=== PATIENT | female | born 1965 | race African-American/Black ===

== ENCOUNTER → 2016-09-15 | Outpatient (CLI) | payer OTHER ==
[~2016-09-15] MED LIST: ERGO1CAP10 PO; HYDR12.57 PO; INSULIN HUMAN REGULAR 1,000 UNITS/10 ML VIAL SQ PRN; IOHEXOL 350 MG/ML 100 ML BTL (for Cath Lab) OTHER ONE; LACTATED RINGER'S 1000 ML IV SCH; LOSA50TA PO; METOPROLOL TARTRATE 25 MG TAB PO PRN; MULT1TAB84 PO; OXYC1TAB36 PO; PROPOFOL 200 MG/20 ML AMP IV ONE; SODIUM CHLORID 0.9% 500 ML IV SCH; VERA1TAB17 PO
[2016-09-15 09:45] VITALS: BP 144/88; PULSE 66; RESP 20; TEMP 98.1; O2SAT 100
[2016-09-15 11:39] VITALS: TEMP 97.7
--- NOTE | 2016-09-15 11:39 | PD.PROCEDR ---
GI Procedure REFERRING PHYSICIAN Dr. Park PROCEDURE PERFORMED Colonoscopy with snare polypectomy INDICATION FOR PROCEDURE Colon polyp PROCEDURE: The procedure, risks and benefits were discussed with Ms. Pearson and informed consent was obtained. Anesthesia sedated her with Diprivan. She was placed in the left lateral decubitus position. Colonoscopy: The Pentax videoscope was introduced through the rectum and advanced to cecum where the ileocecal valve and appendiceal orifice were identified. Retroflexion was performed in the rectum. Colonic prep was good FINDINGS: Colonic withdrawal time greater than 6 minutes as the scope was slowly withdrawn colonic mucosa was carefully inspected the patient was again noted to have a large sessile cecal polyp chunks of the polyp were removed but the polyp is flat and over the cecal ridge and I was not able to get a good visualization and I doubt that resection could be complete otherwise colonic mucosa was healthy ESTIMATED BLOOD LOSS: None SPECIMENS REMOVED: Cecal polyp COMPLICATIONS: None IMPRESSION: Large sessile cecal polyp PLAN: Await pathology Recommend referral to general surgery to Omid Morin MD Sep 15, 2016 11:38
[2016-09-15 11:49] VITALS: BP 129/82; PULSE 67; RESP 16; O2SAT 98
--- NOTE | 2016-09-15 23:36 | EKG ---
Date Performed: 09/15/2016 Time Performed: 08:58:01 PTAGE: 50 years EKG: SINUS BRADYCARDIA BORDERLINE ECG PREVIOUS TRACING : 01/06/1994 06.58 Compared to prior tracing no significant change DOCTOR: Camden Rodriguez Interpretating Date/Time 09/15/2016 23:34:51
== END ==
LOC: HEND 08:16
PROVIDERS: ATTEND Internal Medicine Gastroenterology
DX: Z12.11 Encounter for screening for malignant neoplasm of colon (principal); D12.0 Benign neoplasm of cecum; R94.31 Abnormal electrocardiogram [ECG] [EKG]
CPT/HCPCS: 00810; 45385; 88305; 93005; J7120; Q9967

== ENCOUNTER 2016-10-11 14:56 | Inpatient (IN) | payer OTHER ==
[~2016-10-11] VITALS: Ht 154.9 cm; Wt 76.1 kg
[~2016-10-11 14:56] MED LIST changes: -INSULIN HUMAN REGULAR 1,000 UNITS/10 ML VIAL SQ PRN; -IOHEXOL 350 MG/ML 100 ML BTL (for Cath Lab) OTHER ONE; -LACTATED RINGER'S 1000 ML IV SCH; -METOPROLOL TARTRATE 25 MG TAB PO PRN; -OXYC1TAB36 PO; -PROPOFOL 200 MG/20 ML AMP IV ONE; -SODIUM CHLORID 0.9% 500 ML IV SCH
[2016-10-19] MEDS ORDERED: SODIUM CHLORID 0.9% 500 ML IV PRN (11:30)
[2016-10-19] MEDS ORDERED: CHLORHEXIDINE GLUCONATE 2 % 1 PACK (2 CLOTHS) TOPICAL PRN (11:30)
[2016-10-19] MEDS ORDERED: METOPROLOL TARTRATE 25 MG TAB PO PRN (11:30)
[2016-10-19] MEDS ORDERED: LACTATED RINGER'S 1000 ML IV PRN (11:30)
[2016-10-19] MEDS ORDERED: INSULIN HUMAN REGULAR 1,000 UNITS/10 ML VIAL SQ PRN (11:30)
[2016-10-19] MEDS ORDERED: POVIDONE IODINE 5% (ANTISEPSIS KIT) 4 APPLICATIONS EACH NARE PRN (11:30)
[2016-10-19] MEDS ORDERED: ceFAZolin 2 GM PREMIX 50 ML IV SCH (11:45)
[2016-10-19] MEDS ORDERED: ACETAMINOPHEN 1000 MG/100 ML VIAL IV SCH (11:45)
[2016-10-19] MEDS ORDERED: ALVIMOPAN 12 MG CAPSULE - On Call PO SCH (11:45)
[2016-10-19] MEDS ORDERED: metroNIDAZOLE 500 MG INJ 100 ML IV SCH (11:45)
[2016-10-19] MEDS ORDERED: NORMOSOL R INJ 1,000 ML IV ONE (12:00)
[2016-10-19] MEDS ORDERED: ePHEDrine/NS 25 MG/5 ML SYR IV ONE (12:00)
[2016-10-19] MEDS ORDERED: NEOSTIGMINE 3 MG/3 ML SYR IV ONE (12:00)
[2016-10-19] MEDS ORDERED: PROPOFOL 200 MG/20 ML AMP IV ONE (12:00)
[2016-10-19] MEDS ORDERED: ONDANSETRON HCL 4 MG/2 ML VIAL IV PUSH ONE (12:00)
[2016-10-19 12:06] VITALS: BP 127/84; PULSE 72; RESP 16; TEMP 98.8; O2SAT 98
[2016-10-19] MEDS ORDERED: MIDAZOLAM HCL 2 MG/2 ML VIAL ONE ×2 (16:13→16:19)
[2016-10-19] MEDS ORDERED: ACETAMINOPHEN 1000 MG/100 ML VIAL IV ONE (16:13)
[2016-10-19] MEDS ORDERED: fentaNYL CITRATE 250 MCG/5 ML AMP ONE (16:13)
[2016-10-19] MEDS ORDERED: FAMOTIDINE 20 MG/2 ML VIAL ONE ×2 (16:14→16:19)
[2016-10-19] MEDS ORDERED: DEXAMETHASONE SOD PHOS 4 MG/ML VIAL ONE (16:19)
[2016-10-19] MEDS ORDERED: BUPIVACAINE/EPINEPHRINE 0.5% PF 30 ML VIAL ONE (16:36)
[2016-10-19] MEDS ORDERED: MORPHINE SULFATE 4 MG/ML INJ IV PRN (19:15)
[2016-10-19] MEDS ORDERED: SODIUM CHLORIDE 0.9% FLUSH 10 ML FLUSH IV FLUSH PRN (19:15)
[2016-10-19] MEDS ORDERED: Post-op Orders (for Pharmacy) MISC XX ONE (19:15)
[2016-10-19] MEDS ORDERED: diphenhydrAMINE HCL 50 MG/ML VIAL IV PRN (19:15)
[2016-10-19] MEDS ORDERED: NALOXONE HCL 0.4 MG/ML AMP IV PRN (19:15)
[2016-10-19] MEDS ORDERED: oxyCODONE/ACETAMINOPHEN 5 MG/325 MG TAB PO PRN (19:15)
[2016-10-19] MEDS ORDERED: ONDANSETRON HCL 4 MG/2 ML VIAL IV PRN (19:15)
[2016-10-19] MEDS ORDERED: MORPHINE SULFATE 4 MG/ML INJ ONE (19:21)
[2016-10-19] MEDS ORDERED: *morphine SULFATE 8 MG/ML PERIprocedure ONLY ONE ×2 (19:33→20:04)
[2016-10-19] MEDS ORDERED: DO NOT ADM ANY ANTICOAGULANT DRUGS PRN (19:45)
[2016-10-19] MEDS: SODIUM CHLOR 0.9% 1000 ML INJ 1,000 ML IV SCH (20:00)
[2016-10-19] MEDS: PANTOPRAZOLE SOD 40 MG DELAYED RELEASE TAB PO SCH (20:56)
[2016-10-19] MEDS: SODIUM CHLORIDE 0.9% FLUSH 10 ML FLUSH IV FLUSH SCH (20:57)
[2016-10-19 21:00] VITALS: BP 133/81; PULSE 65; RESP 20; TEMP 97.8; O2SAT 98
[2016-10-19] MEDS: KETOROLAC TROMETHAMINE 30 MG/ML (IVP) VIAL IV PUSH SCH (23:54)
[2016-10-19] MEDS: metroNIDAZOLE 500 MG INJ 100 ML IV SCH (23:55)
[2016-10-20 04:00] VITALS: BP 130/74; PULSE 69; RESP 20; TEMP 96.9; O2SAT 93
[2016-10-20] MEDS: SODIUM CHLOR 0.9% 1000 ML INJ 1,000 ML IV SCH ×4 (04:16→20:38)
[2016-10-20 04:34] LABS: AUTOMATED NEUTROPHIL # 11.4 TH/MM3 (1.8-7.7); BASOPHIL % 0.2 % (0.0-2.0); HEMATOCRIT 33.7 % (35.0-46.0); HEMO FLAGS DIFF FINAL; LYMPH % 4.8 % (9.0-44.0); LYMPHOCYTE # 0.6 TH/MM3 (1.0-4.8); MEAN CELL VOLUME 92.8 FL (80.0-100.0); MEAN CORPUSCULAR HEMOGLOBIN 30.2 PG (27.0-34.0); MEAN CORPUSCULAR HGB CONC 32.6 % (32.0-36.0); MONO % 6.6 % (0.0-8.0); NEUT % 88.4 % (16.0-70.0); PLATELET COUNT 228 TH/MM3 (150-450); RED BLOOD COUNT 3.63 MIL/MM3 (4.00-5.30); RED CELL DISTRIBUTION WIDTH 13.6 % (11.6-17.2); WHITE BLOOD COUNT 12.9 TH/MM3 (4.0-11.0)
[2016-10-20 05:01] LABS: BICARBONATE 24.6 MEQ/L (21.0-32.0); POTASSIUM 3.7 MEQ/L (3.5-5.1)
[2016-10-20] MEDS: KETOROLAC TROMETHAMINE 30 MG/ML (IVP) VIAL IV PUSH SCH ×4 (05:48→23:31)
[2016-10-20 08:00] VITALS: BP 108/73; PULSE 86; RESP 17; TEMP 96.9; O2SAT 98
[2016-10-20] MEDS: SODIUM CHLORIDE 0.9% FLUSH 10 ML FLUSH IV FLUSH SCH ×2 (09:00→20:33)
--- NOTE | 2016-10-20 09:00 | HHI.PR ---
Subjective Subjective Notes Doing well. Abdomen sore but pain is tolerable. No nausea. Had some liquids last night. Objective Vitals/I&O Vital Signs Date Time Temp Pulse Resp B/P Pulse Ox O2 Delivery O2 Flow Rate FiO2 10/20/16 08:00 96.9 86 17 108/73 98 10/19/16 20:15 Nasal Cannula 2 Labs Laboratory Tests Test 10/19/16 10/20/16 12:00 03:45 Blood Type O POSITIVE Antibody Screen NEGATIVE White Blood Count 12.9 Red Blood Count 3.63 Hemoglobin 11.0 Hematocrit 33.7 Mean Corpuscular Volume 92.8 Mean Corpuscular Hemoglobin 30.2 Mean Corpuscular Hemoglobin 32.6 Concent Red Cell Distribution Width 13.6 Platelet Count 228 Mean Platelet Volume 8.2 Neutrophils (%) (Auto) 88.4 Lymphocytes (%) (Auto) 4.8 Monocytes (%) (Auto) 6.6 Eosinophils (%) (Auto) 0.0 Basophils (%) (Auto) 0.2 Neutrophils # (Auto) 11.4 Lymphocytes # (Auto) 0.6 Monocytes # (Auto) 0.9 Eosinophils # (Auto) 0.0 Basophils # (Auto) 0.0 CBC Comment DIFF FINAL Differential Comment Sodium Level 137 Potassium Level 3.7 Chloride Level 103 Carbon Dioxide Level 24.6 Anion Gap 9 Blood Urea Nitrogen 9 Creatinine 0.93 Estimat Glomerular Filtration 77 Rate Random Glucose 140 Calcium Level 7.9 Narrative Exam NAD nonlabored breathing Abd: soft, inc c/d/i with small amt saturation midline bandage Alfredo clear urine A/P Assessment and Plan 50 yo F POD 1 lap assisted right colectomy. Stable post op. Fulls. D/c alfredo. Home bp meds. Ambulate. DVT proph: SCDs. Lovenicholex. Jermaine,Jose MANZO Oct 20, 2016 09:00
[2016-10-20] MEDS: metroNIDAZOLE 500 MG INJ 100 ML IV SCH ×2 (09:02→17:03)
[2016-10-20] MEDS: LOSARTAN 50 MG TAB PO SCH (09:02)
[2016-10-20] MEDS: HYDROCHLOROTHIAZIDE 12.5 MG CAP PO SCH (09:02)
[2016-10-20] MEDS: VERAPAMIL HCL 240 MG SUSTAINED RELEASE TAB PO SCH (09:02)
[2016-10-20] MEDS: ALVIMOPAN 12 MG CAPSULE - Post-op dosing PO SCH ×2 (09:03→20:33)
[2016-10-20 12:00] VITALS: BP 108/64; PULSE 83; RESP 16; TEMP 97.8; O2SAT 96
[2016-10-20 16:00] VITALS: BP 100/61; PULSE 81; RESP 16; TEMP 97.9; O2SAT 94
[2016-10-20] MEDS: ENOXAPARIN SODIUM 40 MG/0.4 ML SYRINGE SQ SCH (17:03)
[2016-10-20] MEDS: oxyCODONE/ACETAMINOPHEN 10 MG/325 MG TAB PO PRN (17:10)
[2016-10-20 20:00] VITALS: BP 92/51; PULSE 61; RESP 20; TEMP 97.8; O2SAT 94
[2016-10-20] MEDS: PANTOPRAZOLE SOD 40 MG DELAYED RELEASE TAB PO SCH (20:37)
[2016-10-21 04:00] VITALS: BP 119/71; PULSE 67; RESP 21; TEMP 98.2; O2SAT 97
[2016-10-21] MEDS: KETOROLAC TROMETHAMINE 30 MG/ML (IVP) VIAL IV PUSH SCH ×4 (05:01→23:01)
[2016-10-21] MEDS: SODIUM CHLOR 0.9% 1000 ML INJ 1,000 ML IV SCH (05:04)
[2016-10-21] MEDS: oxyCODONE/ACETAMINOPHEN 10 MG/325 MG TAB PO PRN ×3 (06:00→17:57)
[2016-10-21 08:00] VITALS: BP 114/69; PULSE 94; RESP 18; TEMP 96.9; O2SAT 96
[2016-10-21] MEDS: ALVIMOPAN 12 MG CAPSULE - Post-op dosing PO SCH ×2 (08:47→19:54)
[2016-10-21] MEDS: HYDROCHLOROTHIAZIDE 12.5 MG CAP PO SCH (09:00)
[2016-10-21] MEDS: SODIUM CHLORIDE 0.9% FLUSH 10 ML FLUSH IV FLUSH SCH ×2 (09:00→19:55)
[2016-10-21] MEDS: LOSARTAN 50 MG TAB PO SCH (09:00)
--- NOTE | 2016-10-21 10:13 | HHI.PR ---
Subjective Subjective Notes Had some pain last night but better now. She is tolerating fulls without nausea. Had a couple of liquid bloody BMs. Objective Vitals/I&O Vital Signs Date Time Temp Pulse Resp B/P Pulse Ox O2 Delivery O2 Flow Rate FiO2 10/21/16 08:00 96.9 94 18 114/69 96 10/19/16 20:15 Nasal Cannula 2 Narrative Exam NAD nonlabored breathing Abd: soft, inc with some oozing and mild ecchymosis. Dressing changed. A/P Assessment and Plan 50 yo F POD 2 lap assisted right colectomy. Stable post op. Regular diet. D/c ivf. Home bp meds. Ambulate. DVT proph: SCDs. Lovenox. Plan for dc home tomorrow. Rx on chart. Jose Dean MD Oct 21, 2016 10:13
[2016-10-21] MEDS ORDERED: OXYC1TAB36 PO (10:15)
[2016-10-21] MEDS: VERAPAMIL HCL 240 MG SUSTAINED RELEASE TAB PO SCH (11:59)
[2016-10-21 12:00] VITALS: BP 118/70; PULSE 85; RESP 16; TEMP 97.2; O2SAT 97
[2016-10-21 16:00] VITALS: BP 107/61; PULSE 96; RESP 15; TEMP 97.1; O2SAT 95
[2016-10-21] MEDS: ENOXAPARIN SODIUM 40 MG/0.4 ML SYRINGE SQ SCH (17:57)
[2016-10-21] MEDS: PANTOPRAZOLE SOD 40 MG DELAYED RELEASE TAB PO SCH (19:54)
[2016-10-21 20:00] VITALS: BP 112/65; PULSE 85; RESP 20; TEMP 98.7; O2SAT 94
[2016-10-21 23:59] VITALS: BP 140/76; PULSE 86; RESP 20; TEMP 98.4; O2SAT 98
[2016-10-22] MEDS: oxyCODONE/ACETAMINOPHEN 10 MG/325 MG TAB PO PRN
[2016-10-22] MEDS: KETOROLAC TROMETHAMINE 30 MG/ML (IVP) VIAL IV PUSH SCH ×2 (05:38→11:32)
[2016-10-22 08:00] VITALS: BP 98/55; PULSE 91; RESP 16; TEMP 95.3; O2SAT 98
[2016-10-22] MEDS: SODIUM CHLORIDE 0.9% FLUSH 10 ML FLUSH IV FLUSH SCH (09:17)
[2016-10-22] MEDS: ALVIMOPAN 12 MG CAPSULE - Post-op dosing PO SCH (09:17)
[2016-10-22] MEDS: VERAPAMIL HCL 240 MG SUSTAINED RELEASE TAB PO SCH (09:19)
[2016-10-22] MEDS: HYDROCHLOROTHIAZIDE 12.5 MG CAP PO SCH (09:21)
[2016-10-22] MEDS: LOSARTAN 50 MG TAB PO SCH (09:21)
--- NOTE | 2016-10-22 10:37 | HHI.PR ---
Subjective Subjective Notes pt comfortable magda diet pos flatus Objective Vitals/I&O Vital Signs Date Time Temp Pulse Resp B/P Pulse Ox O2 Delivery O2 Flow Rate FiO2 10/22/16 08:00 95.3 91 16 98/55 98 10/19/16 20:15 Nasal Cannula 2 Abdomen: Post-op tenderness Extremities: Perfused Wound Wound : Wound Location: Abdomen Appearance: Clean & Dry A/P Assessment and Plan s/p lap assisted r colectomy doing well d/c home Zaire Gonzalez MD Oct 22, 2016 10:37
--- NOTE | 2016-10-22 12:47 | MP ---
cc: JOSIAH MEI MD DATE OF SURGERY: 10/19/2016 PREOPERATIVE DIAGNOSIS: Cecal polyp. POSTOPERATIVE DIAGNOSIS: Cecal polyp. OPERATION: Laparoscopic assisted ascending colectomy. SURGEON: Josiah Mei MD. INSTRUCTOR PHYSICAL: ROHINI Paulino. Anesthesia: General endotracheal anesthesia. ESTIMATED BLOOD LOSS: 20 cc. COMPLICATIONS: None apparent. SPECIMENS Right colon from terminal ileum and appendix with cecal polyp. OPERATIVE FINDINGS The patient underwent uncomplicated right colectomy. The specimen was opened on the back table and the patient had a fairly extensive polyp involving the entire ileocecal valve. PROCEDURE IN DETAIL The patient was taken to the operating room and placed in supine position. General endotracheal anesthesia was induced. The left arm was tucked. The abdomen was prepped and draped in usual sterile fashion. A surgical time-out was performed to verify correct patient, procedure and site. She was administered appropriate Preoperative antibiotics. In the left lower abdomen a 5-mm trocar was inserted at under direct laparoscopic visualization. The abdomen was insufflated to 15 mmHg with CO2 gas which the patient tolerated well. A 5-mm trocar was placed in the lower midline and one in the left upper abdomen and epigastrium. The patient was placed in Trendelenburg position and turned to the left. Attention was turned to the cecum. The cecum was elevated and the ileocolic pedicle in the colonic mesentery was isolated using harmonic scalpel. The left upper abdominal port was changed to a 12 mm port and the ileocolic pedicle was then divided with the vascular laparoscopic stapler. The lateral attachments of the appendix and terminal ileum were divided with harmonic scalpel and well as the entire white line of Toldt along the right colon. The avascular plane between the greater omentum and the transverse colon was then divided and then the proximal transverse colon. Hepatic flexure was taken down as well with harmonic scalpel. The harmonic scalpel was used to divide the mesentery from the site of the ileocolic division to the terminal ileum. The site was also chosen on the right colon where the mesentery was divided to that point. The terminal ileum and right colon were now well mobilized. The patient had a previous lower midline scar and this was opened along the length of approximately 6 cm a with a knife. The abdomen was allowed to desufflate. The dissection was carried out down through the incision with the electrocautery and the fascia opened. The cecum and specimen were brought up through this lower midline small laparotomy incision. The terminal ileum site where the mesentery was divided was then transected with the TREVON 75 mm blue load stapler. The right colon was then divided at the corresponding site of the divided mesentery with the blue load 75 mm TREVON stapler. The specimen was opened on the back table and there was fairly extensive sessile polyp including the entire ileocecal valve and portion around the ileocecal valve. Antiperistaltic [id number] functional end-to-end anastomosis was performed using the TREVON 75 mm blue load stapler and a TX 60 blue load. There was no tension on the anastomosis. No hematoma or bleeding from the staple line. There was some external bleeding which was stopped with interrupted [id number] 3-0 silk sutures. The ileocolic mesentery was then closed with the running 3-0 silk suture and the anastomosis replaced into the abdominal cavity. The lower midline incision was closed with a running #1 PDS suture. The abdomen was then reinsufflated and the mesentery was in correct position with no twisting. The abdomen was again allowed to desufflate and trocars were removed. The lower midline incision was copiously irrigated and skin closed with the skin stapler. The skin of the remaining trocar sites was closed with subcuticular 4-0 Monocryl as well as Dermabond. The patient tolerated procedure well was extubated and taken to PACU in stable condition. MD GET Acuna/trace /12:24 PM /12:30 PM KIRAN
--- NOTE | 2016-11-16 11:00 | MD ---
cc: JOSIAH MEI MD ADMISSION DATE: 10/19/2016 DISCHARGE DATE: 10/22/2016 ADMITTING DIAGNOSIS Cecal polyp. PROCEDURE Laparoscopic ascending colectomy. BRIEF HISTORY This is a 50-year-old female who on routine screening colonoscopy was found to have a cecal polyp enveloping the majority of the ileocecal valve and unable to be removed endoscopically. Therefore she was referred for colectomy and after evaluation and discussion with the patient this was planned. HOSPITAL COURSE She did well postoperatively, tolerated liquids and regular pain medication. Her pain was controlled with oral medications and she was ambulating safely. She was therefore discharged to home. DISCHARGE CONDITION Stable. DISCHARGE INSTRUCTIONS Activity: Avoid heavy lifting. Diet: Regular. Medications: Percocet. Discharge to home. Follow-up in 2 weeks. Josiah Mei MD JPD/BT /2:38 PM /10:46 AM
== END 2016-10-22 12:50 | disposition home or self-care (01) | DRG 331 ==
LOC: HSDI 10-19 11:09 → N07B 10-19 20:32
PROVIDERS: ADMIT Surgery; ATTEND Surgery
PROC: 0DTH0ZZ Resection of Cecum, Open Approach (ICD-10-PCS; 2016-10-19)
PROC: 0DJD4ZZ Inspection of Lower Intestinal Tract, Percutaneous Endoscopic Approach (ICD-10-PCS; 2016-10-19)
PROC: 0DTK0ZZ Resection of Ascending Colon, Open Approach (ICD-10-PCS; principal; 2016-10-19 16:22)
DX: D12.0 Benign neoplasm of cecum (principal); D12.2 Benign neoplasm of ascending colon; I10 Essential (primary) hypertension; D64.9 Anemia, unspecified
CPT/HCPCS: 80048; 85025; 86850; 86900; 86901; 88309; 94150; J0131; J0690; J1100; J1650; J1885; J2250; J2270; J2405; J2710; J3010; J7030; J7120